=== PATIENT | female | born 1995 | race Caucasian/White ===

== ENCOUNTER 2018-03-20 10:31 | Outpatient (CLI) | payer OTHER, SELFPAY ==
[2018-03-21 10:06] LABS: Hepatitis C Ab w Rflx HCV PCR Negative (NEGAT)
== END 2018-03-20 10:32 ==
PROVIDERS: Visit Provider Advanced Practice Midwife
DX: Z34.93 Encounter for supervision of normal pregnancy, unspecified, third trimester (principal); Z11.59 Encounter for screening for other viral diseases
CPT/HCPCS: 36415; 86803; 86850; 86900; 86901

== ENCOUNTER 2018-04-11 02:53 | Outpatient (CLI) | payer OTHER, SELFPAY ==
--- NOTE | 2018-04-11 14:08 | DI.REPORT_ITS ---
SYMPTOMS/DIAGNOSIS: SIZE INCONSISTENT WITH DATES IN 3RD TRIMESTER, O26.843 OB ULTRASOUND: OB ultrasound was performed utilizing limited third trimester protocol. The placenta is anterior with no evidence of a placenta previa. The biometry is consistent with a gestational age of 34 weeks 3 days and an EDC of 05/20/18. The estimated weight is 2426 grams which is at the 61% for predicted gestational age. There is a visibly normal amount of amniotic fluid and the MT is 14 cm. The fetus is in cephalic presentation. cardiac activity observed at a rate of 135 bpm. Many abnormalities cannot be diagnosed. A normal exam does not exclude a congenital anomaly. Radiology No. [id number] LMP: Exam Date: 04/11/18 [facility] wks days on EDC ([facility]) 05/24/18 Confirmed: HISTORY: f/u growth and MT ---- PREDICTED GESTATIONAL AGE NUMBER 33+6 weeks with a range of 32+6 weeks to 34+6 weeks. 1 Determined by 1STUS X LMP___HISTORY Info. pertaining to fetus # PLACENTA PRESENTATION Grade Cephalic X Anterior X Posterior___ Breech____ Right Left Transverse(head right___ Fundal___Low-lying___Previa___ Transverse(head left___ Varying BIOMETRY AMNIOTIC FLUID BPD: 85 mm 34+2 weeks Normal HC: 308 mm 34+2 weeks AC: 305 mm 34+3 weeks FL: 67 mm 34+3 weeks AMNIOTIC FLUID INDEX >26 WK CRL: mm weeks Cisterna Magna: mm CI: 80 RUQ: 4.62 LUQ: 3.36 Cerebellum: cm EFW: 2426 grams Percentile 61% RLQ: 2.79 LLQ: 3.0 Total: 13.8 cms Composite AGE= 34+3 wks EDC by US 05/20/18 BIOPHYSICAL PROFILE ANATOMY IDENTIFIED SCORE 0/2 Heart: 4-Chamber___Rate: 135 BPM LVOT: RVOT: X Amniotic Fluid(>2cms)____ Stomach: X Kidneys: Respirations (>30 secs) Bladder: X Post. Fossa: Body Flex/Extension 3 vessel cord: Ventricles: cord insertion: Lips:____ Extremity Flex/Extension spinal morphology: Nose: Total Score= Palate: NS=not seen
== END 2018-04-11 02:54 ==
PROVIDERS: Visit Provider Advanced Practice Midwife
DX: O26.843 Uterine size-date discrepancy, third trimester (principal)
CPT/HCPCS: 76816

== ENCOUNTER 2018-05-26 11:42 | Outpatient (CLI) | payer MEDICAID, SELFPAY | END 2018-05-26 12:02 | PROVIDERS: Visit Provider Midwife | DX: R69 Illness, unspecified (principal) ==

== ENCOUNTER 2018-05-26 12:14 | Outpatient (CLI) | payer MEDICAID, SELFPAY | END 2018-05-26 12:34 | PROVIDERS: Visit Provider Midwife | DX: O48.0 Post-term pregnancy (principal); Z3A.40 40 weeks gestation of pregnancy | CPT/HCPCS: 59025 ==

== ENCOUNTER 2018-05-28 04:57 | Observation (INO) | payer MEDICAID, SELFPAY | END 2018-05-28 15:15 | disposition home or self-care (01) | PROVIDERS: Admitting Provider Advanced Practice Midwife; Visit Provider Advanced Practice Midwife | DX: O48.0 Post-term pregnancy (principal); O47.03 False labor before 37 completed weeks of gestation, third trimester; Z3A.40 40 weeks gestation of pregnancy | CPT/HCPCS: G0378 ==

== ENCOUNTER 2018-05-28 21:16 | Inpatient (IN) | payer MEDICAID, SELFPAY ==
[2018-05-28 22:38] LABS: HCT 32.6 % (36.0-46.0); HGB 11.3 g/dL (12.0-15.5); Mean Corp. HGB Concentration 34.7 g/dL (32.0-36.0); Mean Corpuscular Hemoglobin 30.4 pg (27.0-33.0); Mean Corpuscular Volume 87.6 fL (80-95); Platelet Count 201 x1000/uL (130-400); RBC 3.72 m/cumm (4.00-5.20); White Blood Cell Count 10.99 k/cumm (4.4-10.8)
[2018-05-28] MEDS: Normal Saline Flush 10 ML SYR IVP (22:43)
[2018-05-28] MEDS: Lactated Ringers 500 ML IV (22:48)
[2018-05-29] MEDS: Lactated Ringers 1,000 ML 125 ML IV ×3 (02:12→16:23)
[2018-05-29] MEDS: fentaNYL 100 MCG/2 ML VIAL EP (05:33)
[2018-05-29] MEDS: Bupivacaine 0.25% Pres-Free 10 ML VIAL EP (05:37)
[2018-05-29] MEDS: Hamamelis Leaf/Glycerin 100 EACH BOX PR (21:07)
[2018-05-29] MEDS: Ibuprofen 600 MG TAB PO (21:08)
[2018-05-29] MEDS: Docusate Sodium 100 MG CAP PO (21:08)
[2018-05-30 07:33] LABS: HCT 28.4 % (36.0-46.0); HGB 9.4 g/dL (12.0-15.5); Mean Corp. HGB Concentration 33.1 g/dL (32.0-36.0); Mean Corpuscular Hemoglobin 29.5 pg (27.0-33.0); Mean Platelet Volume 10.4 fL (8.0-11.0); Platelet Count 160 x1000/uL (130-400); RBC 3.19 m/cumm (4.00-5.20); RBC Distribution Width 15.1 % (11.7-14.6); White Blood Cell Count 10.61 k/cumm (4.4-10.8)
[2018-05-30] MEDS: Ibuprofen 600 MG TAB PO ×2 (10:48→18:25)
[2018-05-30] MEDS: Acetaminophen 325 MG TAB 650 MG PO ×2 (10:48→18:25)
[2018-05-31] MEDS: Ibuprofen 600 MG TAB PO ×2 (01:05→07:30)
[2018-05-31] MEDS: Acetaminophen 325 MG TAB 650 MG PO (07:30)
[2018-05-31] MEDS: Hamamelis Leaf/Glycerin 100 EACH BOX PR (12:25)
== END 2018-05-31 13:00 | disposition home or self-care (01) | DRG 807 ==
PROVIDERS: Admitting Provider Advanced Practice Midwife; PCP Advanced Practice Midwife; Visit Provider Advanced Practice Midwife
DX: O42.02 Full-term premature rupture of membranes, onset of labor within 24 hours of rupture (principal); Z37.0 Single live birth; O75.81 Maternal exhaustion complicating labor and delivery; O63.0 Prolonged first stage (of labor); O62.1 Secondary uterine inertia; O77.0 Labor and delivery complicated by meconium in amniotic fluid; O76 Abnormality in fetal heart rate and rhythm complicating labor and delivery; O48.0 Post-term pregnancy; Z3A.40 40 weeks gestation of pregnancy; O99.824 Streptococcus B carrier state complicating childbirth; O99.344 Other mental disorders complicating childbirth; O99.02 Anemia complicating childbirth; O99.214 Obesity complicating childbirth; D64.9 Anemia, unspecified; F41.9 Anxiety disorder, unspecified; E66.9 Obesity, unspecified
CPT/HCPCS: 36415; 85027; 86850; 86900; 86901; G0378; J2540; J3010; J3490

== ENCOUNTER 2018-07-17 17:56 | Outpatient (REF) | payer MEDICAID, SELFPAY ==
--- NOTE | 2018-07-17 15:00 | PAPFT_PTH ---
PATIENT: NOE BERNARD LOC: [facility] U#:[id number] AGE/SX: 22/F ROOM: RE07/17/[address]: Karla Diaz CNM : 1995 BED: DIS: 07/17/2018 SPEC #: [id number] RECD: 07/17/18 18:21 STATUS: NATASHA REQ #: [id number] JACQUELINE: 07/17/18 15:[address]: Karla Diaz DEPT: [facility] Cytology RECD BY: Pat Garcias ENTERED: 07/17/18 18:22 SP TYPE: PAPFT OTHR DR: GALEN Baker RN Tissues: 1 - CX/ENDOCX FOR PAP SMEARS Procedures: PAP THIN PREP/[facility] Screening Comments: [id number]
== END 2018-07-17 18:16 ==
LOC: LBN 17:56
PROVIDERS: Visit Provider Nurse Practitioner
DX: Z12.4 Encounter for screening for malignant neoplasm of cervix (principal)
CPT/HCPCS: 88142